=== PATIENT | male | born 1985 | race Hispanic/Latino ===

== ENCOUNTER 2022-11-06 10:50 | Emergency (ER) | payer SELFPAY ==
[2022-11-06 11:26] VITALS: BP 138/94
[2022-11-06 11:30] VITALS: BP 127/85
[2022-11-06] MEDS ORDERED: OFLOXACIN0.3 % OD (11:41)
[2022-11-06 11:45] VITALS: BP 126/91
[2022-11-06 12:00] VITALS: BP 132/87
[2022-11-06 12:28] VITALS: BP 132/87
== END 2022-11-06 12:37 | disposition home or self-care (01) | DRG 125 ==
LOC: ED 10:50
DX: H10.31 Unspecified acute conjunctivitis, right eye (principal)

== ENCOUNTER 2022-11-08 16:46 | Emergency (ER) | payer OTHER ==
[~2022-11-08 16:46] MED LIST: OFLOXACIN0.3 % OD
[2022-11-08 17:10] VITALS: BP 126/87
[2022-11-08 17:15] VITALS: BP 136/96
[2022-11-08 21:19] VITALS: BP 1136/96
== END 2022-11-08 21:30 | disposition home or self-care (01) | DRG 125 ==
LOC: ED 16:46
DX: H10.31 Unspecified acute conjunctivitis, right eye (principal)